=== PATIENT | female | born 1940 | race Caucasian/White ===

== ENCOUNTER 2018-11-02 11:21 | Outpatient (CLI) | payer MEDICARE | END 2018-11-02 11:30 | LOC: LAB 11:21 | PROVIDERS: ATTEND Nurse Practitioner Family | DX: R19.4 Change in bowel habit (principal) | CPT/HCPCS: 82270; 87045; 87046; 87177; 87209; 87427; 87493 ==

== ENCOUNTER 2019-06-16 19:59 | Emergency (ER) | payer MEDICARE ==
--- NOTE | 2019-06-16 20:56 | ED Physician Documentation ---
Fall - HISTORIAN Historian: patient, spouse - [facility] Chief Complaint: Fall (Facial injury) Additional Information: Patient is a 78 year old female who states that she was walking and had her hands full and fell forward hitting the left cheek and left thigh. She denies any LOC. Onset: just prior to arrival Where: home Context: tripped, fell from standing r: moderate Associated Symptoms:: no loss of consciousness. denies: memory impairment Location of Pain/Injury: face, lower extremity Injury to Right Extremity: none Injury to Left Extremity: thigh - ROS CONST: no problems NEURO: denies: dizziness MS/SKIN/LYMPH: denies: weakness EYES/ENT: none CVS/RESP: none GI/: denies: nausea, vomiting - PAST HX Past History: diabetes Type 2, other (hypothyroid) Immunizations: UTD Allergies/Adverse Reactions: Allergies Allergy/AdvReac Type Severity Reaction Status Date / Time Penicillins Allergy Verified 06/16/19 20:57 Home Medications: Ambulatory Orders Medication Instructions Recorded Allopurinol [Zyloprim] 300 mg PO DAILY 06/16/19 Bisoprl/Hctz 1 tab PO DAILY 06/16/19 Gabapentin [Neurontin] 600 mg PO QID 06/16/19 Glipizide [Glucotrol Xl] 10 mg PO DAILY 06/16/19 Levothyroxine Sodium [Levo-T] 125 mcg PO DAILY 06/16/19 Metformin HCl 500 mg PO BID 06/16/19 - SOCIAL HX Smoking History: non-smoker Alcohol Use: none Drug Use: none - FAMILY HX Family History: none - REVIEWED ASSESSMENTS Nursing Assessment Reviewed: Yes Vitals Reviewed: Yes ED Results Lab/Radiology - Radiology Radiology Impressions: LT FEMUR 2VIEWS History: fall, left leg pain (Hx) / Findings: 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 There is no evidence of acute fracture. Postoperative changes are also seen within the proximal tibia. Impression: 1. No acute osseous abnormality. 2. 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 Electronically signed by: Dr. Joaquín Stewart FACIAL BONES 3 VIEWS OR MORE History: Fall, left infraorbital pain and swelling (Hx) / Findings: The calvarium is intact. No definite orbital fracture is identified. The paranasal sinuses are unopacified. The mandible is intact. No nasal bone fracture identified. Impression: 1. No evidence of facial fracture. Electronically signed by: Dr. Joaquín Stewart - Orders Orders: ED Orders Category Date Time Status FACIAL BONES 3 VIEWS OR MORE [RAD] Stat Exams 06/16/19 Ordered LT FEMUR 1VIEW [RAD] Stat Exams 06/16/19 Ordered Fall Physical Exam - Physical Exam General Appearance: no acute distress, alert Head: non-tender, no swelling Neck: non-tender Eye: DARIAN, EOMI, other (left cheek swelling) ENT: nml external inspection, no dental injury, no oral injury, airway nml Resp/CVS: chest non-tender, breath sounds nml Abdomen: soft, normal bowel sounds Neuro: oriented x3, CN's nml as tested, sensation nml, motor nml, mood/affect nml, recycling operations manager nml, recycling operations manager symmetrical Skin: color nml, ecchymosis (to the left cheek) Back: normal inspection Extremities: atraumatic, pelvis stable, hips non-tender Joint: joints nml, nml ROM, Nml gait/weight bearing - [place] Coma Score Eyes Open: Spontaneous Speech: Oriented Motor: Obeys Commands Discharge Clincal Impression: Facial contusion, Contusion of left thigh Referrals: Melina Chaidez PRN [Primary Care Provider] - 2 Days Additional Instructions: Apply ice to the cheek area Use heating pads to affected areas of muscle pain May use Icy Hot, BenGay, Biofreeze, or Salonpas Alternate Tylenol and Ibuprofen as needed for discomfort Follow up with PCP next week for re-evaluation Condition: Good Disposition: 01 HOME, SELF-CARE Decision to Admit: NO Decision Time: 21:44
[2019-06-16 22:03] VITALS: BP 137/73
--- NOTE | 2019-06-22 17:47 | Diagnostic Imaging Report ---
MARINA DAVIDSON ED [facility] [address] [facility] [address] 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 There is no evidence of acute fracture. Postoperative changes are also seen within the proximal tibia. Impression: 1. No acute osseous abnormality. 2. 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 Electronically signed on Jun 16, 2019 9:33:17 PM CDT by: Joaquín MAGALLON
--- NOTE | 2019-06-22 17:47 | Diagnostic Imaging Report ---
MARINA DAVIDSON ED [facility] [address] [facility] [address] Report Submission Date: Jun 16, 2019 9:34:37 PM CDT Patient Study Name: BRANDON CUETO Date: Jun 16, 2019 9:02:58 PM CDT Modality Type: DX Gender: F Description: FACIAL BONES 3 VIEWS OR MORE : 44 Institution: [facility] Physician: MARINA DAVIDSON ED FACIAL BONES 3 VIEWS OR MORE History: Fall, left infraorbital pain and swelling (Hx) / Findings: The calvarium is intact. No definite orbital fracture is identified. The paranasal sinuses are unopacified. The mandible is intact. No nasal bone fracture identified. Impression: 1. No evidence of facial fracture. Electronically signed on Jun 16, 2019 9:34:37 PM CDT by: Joaquín MAGALLON
== END 2019-06-16 21:53 | disposition home or self-care (01) ==
LOC: ED 19:59
DX: S00.83XA Contusion of other part of head, initial encounter (principal); S70.12XA Contusion of left thigh, initial encounter; W01.0XXA Fall on same level from slipping, tripping and stumbling without subsequent striking against object, initial encounter; Y93.01 Activity, walking, marching and hiking; Y99.8 Other external cause status
CPT/HCPCS: 70150; 73552; 99282